=== PATIENT | female | born 1995 | race Caucasian/White ===

== ENCOUNTER 2016-11-20 12:20 | Emergency (ER) | payer SELFPAY ==
--- NOTE | 2016-11-20 16:29 | ED ---
Chinedu Mckenna Rebecca, scribed for Mariana Obando MD on 11/20/16 at 1432 . Complex/Multi-Sys Presentation - HPI Summary HPI Summary: Pt is a 21 y/o F who presents to ED c/o L-sided facial swelling and dental pain. Pt reports sx have been constantly present for "a while" but worsened yesterday. Pain is currently mild, ranked 2/10 and characterized as dull. States that the pain is not discrete to one tooth, but rather diffuse on the L side of the mouth and gums. Sx aggravated by eating and drinking, alleviated by nothing. Additionally c/o L-sided gum swelling. - History Of Current Complaint Chief Complaint: EDGeneral Time Seen by Provider: 11/20/16 14:30 Hx Obtained From: Patient Onset/Duration: Still Present, Worse Since - yesterday Timing: Constant Severity Currently: Mild - 210 Severity Initially: Mild Location: Pain At: - L-sided dental pain Character: Dull Aggravating Factor(s): Eating and drinking Alleviating Factor(s): nothing Associated Signs And Symptoms: Positive: Other - Facial swelling, L-sided gum swelling PMH/Surg Hx/FS Hx/Imm Hx Endocrine/Hematology History: Denies: Hx Diabetes Cardiovascular History: Denies: Hx Hypercholesterolemia, Hx Hypertension Infectious Disease History: No Infectious Disease History: Denies: Traveled Outside the [place] in Last 30 Days - Family History Known Family History: Negative: Hypertension - Social History Lives: With Family Alcohol Use: None Hx Substance Use: No Substance Use Type: Reports: None Hx Tobacco Use: No Smoking Status (MU): Never Smoked Tobacco Review of Systems Positive: Dental Pain - L-sided, Other - L-sided gum swelling Positive: Other - L-sided facial swelling All Other Systems Reviewed And Are Negative: Yes Physical Exam - Summary Physical Exam Summary: General: Well appearing, no pain distress Skin: Warm, Skin Color Reflects Adequate Perfusion, Dry, very minimal facial swelling, no submental swelling Eyes: EOMI, ZAINAB ENT: Pharynx normal, TMs normal, no trismus, no tooth tenderness Neck: Supple, nontender Respiratory: CTA, breath sounds present, no rhonchi, no wheezes, no rales Cardiovascular: RRR, no murmur, no rub, no gallop Musculoskeletal: MAYNOR, No edema Neuro: Sensory/motor intact, A&Ox3, CN intact 2-12 Psych: Affect/mood appropriate Triage Information Reviewed: Yes Vital Signs On Initial Exam: Initial Vitals Temp Pulse Resp BP 98.5 F 119 20 122/82 11/20/16 12:22 11/20/16 12:22 11/20/16 12:22 11/20/16 12:22 Vital Signs Reviewed: Yes Diagnostics - Vital Signs Vital Signs Temp Pulse Resp BP Pulse Ox 11/20/16 12:25 98.0 F 125 20 122/82 99 11/20/16 12:22 98.5 F 119 20 122/82 - Laboratory Lab Statement: Any lab studies that have been ordered have been reviewed, and results considered in the medical decision making process. Complex Multi-Symp Course/Dx Course Of Treatment: diffuse tooth discomfort left lower mandible,no trismus no signs of andre's angina, pt denied the need for pain meds. given [facility] - Diagnoses Provider Diagnoses: Pain, dental Discharge - Discharge Plan Condition: Stable Disposition: HOME Prescriptions: Penicillin VK TAB* [Penicillin VK 250 mg Tab*] 500 mg PO QID #28 tab Penicillin VK TAB* [Penicillin VK 250 mg Tab*] 500 mg PO QID #28 tab Patient Education Materials: Toothache (ED) Referrals: Hector Lynn MD [Primary Care Provider] - 2 Days The documentation as recorded by the Chinedu laurent Rebecca accurately reflects the service I personally performed and the decisions made by , Mariana Obando MD.
== END 2016-11-20 16:18 | disposition home or self-care (01) ==
LOC: ED 12:20
DX: K08.89 Other specified disorders of teeth and supporting structures (principal)
CPT/HCPCS: 99281